=== PATIENT | female | born 1995 | race African-American/Black ===

== ENCOUNTER 2017-09-06 23:46 | Emergency (ER) | payer OTHER ==
[~2017-09-06] VITALS: Ht 170.2 cm; Wt 90.7 kg
[2017-09-06 23:50] VITALS: BP 133/85
[2017-09-06] MEDS ORDERED: BACITRACIN ZINC OINT (15 GM) 15 GM TUBE TP STA (23:56)
[2017-09-07] MEDS ORDERED: ACETAMINOPHEN 325 MG TABLET PO ONE
[2017-09-07] MEDS ORDERED: BACITRACIN ZINC OINT PACKET 1 EA PACKET TP ONE (00:06)
[2017-09-07] MEDS ORDERED: ACETAMINOPHEN 325 MG TABLET ONE (00:06)
== END 2017-09-07 00:11 | disposition home or self-care (01) ==
LOC: ER 23:46
DX: T23.172A Burn of first degree of left wrist, initial encounter (principal); X14.1XXA Other contact with hot air and other hot gases, initial encounter; Y93.89 Activity, other specified; Y92.89 Other specified places as the place of occurrence of the external cause; Y99.0 Civilian activity done for income or pay
CPT/HCPCS: 16000; 99283; A4606; Z7610

== ENCOUNTER 2017-12-25 22:52 | Emergency (ER) | payer OTHER ==
[~2017-12-25] VITALS: Ht 167.6 cm; Wt 86.2 kg
[2017-12-25 22:57] VITALS: BP 138/78
== END 2017-12-25 23:42 | disposition home or self-care (01) ==
LOC: ER 22:53
DX: H10.211 Acute toxic conjunctivitis, right eye (principal)
CPT/HCPCS: A4606; Z7610